=== PATIENT | female | born 1995 | race Caucasian/White ===

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

== ENCOUNTER 2017-07-21 11:14 | Emergency (ER) | payer OTHER ==
[2017-07-21 12:26] VITALS: BP 123/81
--- NOTE | 2017-07-21 13:07 | UC ---
Skin Complaint HPI - HPI Summary HPI Summary: Pt presents c/o "split" skin in corner of left side of mouth. corner of upper and lower lip - History of Current Complaint Chief Complaint: UCSkin Time Seen by Provider: 07/21/17 13:00 Stated Complaint: ORAL COMPLAINT Hx Obtained From: Patient Hx Last Menstrual Period: yesterday ?: No Onset/Duration: Gradual Onset, Lasting Days Skin Exposure Onset/Duration: Days Ago Timing: Constant Onset Severity: Mild Current Severity: Mild Location: Discrete - mouth Character: Pain Aggravating Factor(s): Other - eating Alleviating Factor(s): Nothing Associated Signs & Symptoms: Positive: Tenderness - Allergy/Home Medications Allergies/Adverse Reactions: Allergies Allergy/AdvReac Type Severity Reaction Status Date / Time No Known Allergies Allergy Verified 07/21/17 12:26 Home Medications: Home Medications Minocycline HCl 50 mg PO DAILY 07/21/17 [History Confirmed 07/21/17] Spironolactone TAB* [Aldactone TAB*] 25 mg PO DAILY 07/21/17 [History Confirmed 07/21/17] Review of Systems Constitutional: Negative Skin: Other - split skin of corner of mouth Eyes: Negative ENT: Negative Respiratory: Negative Cardiovascular: Negative Gastrointestinal: Negative Genitourinary: Negative Motor: Negative Neurovascular: Negative Musculoskeletal: Negative Neurological: Negative Psychological: Negative Is Patient Immunocompromised?: No All Other Systems Reviewed And Are Negative: Yes PMH/Surg Hx/FS Hx/Imm Hx Previously Healthy: Yes Other History Of: Negative For: HIV, Hepatitis B, Hepatitis C, Anticoagulant Therapy - Surgical History Surgical History: Yes Surgery Procedure, Year, and Place: Right [facility], [facility] - Family History Known Family History: Negative: Cardiac Disease, Hypertension - Social History Occupation: Student - [employer] Lives: With Family Alcohol Use: Occasionally Substance Use Type: None Smoking Status (MU): Never Smoked Tobacco Have You Smoked in the Last Year: No - Immunization History Most Recent Influenza Vaccination: Fall 2015 Physical Exam Triage Information Reviewed: Yes Appearance: Well-Appearing Vital Signs: Initial Vital Signs Temp 98 F 07/21/17 12:21 Pulse 65 07/21/17 12:21 Resp 16 07/21/17 12:21 BP 123/81 07/21/17 12:21 Vital Signs Reviewed: Yes Eye Exam: Normal ENT Exam: Normal Dental Exam: Normal Neck exam: Normal Respiratory Exam: Normal Musculoskeletal Exam: Normal Neurological Exam: Normal Psychological Exam: Normal Skin Exam: Other - angular chelitis, left side corner of mouth Course/Dx - Differential Diagnoses - Skin Complaint Differential Diagnoses: Other - angular chelitis - Diagnoses Provider Diagnoses: angular chelitis Discharge - Discharge Plan Condition: Stable Disposition: HOME Prescriptions: Nystatin/Triamcinolon OINT(NF) [Mycolog Oint*] 1 applic TOPICAL Q12H #1 tube Patient Education Materials: Nystatin/Triamcinolone (On the skin) Referrals: [facility] [Outside] - If Needed Non Staff,Doctor [Primary Care Provider] - If Needed Additional Instructions: Angular chelitis: Tender, red splits or cracks at the corner of your mouth (angular cheilitis), which can be caused by infection, a diet too low in vitamins, and over-closure of the mouth in someone who has been without teeth or dentures for some time.
== END 2017-07-21 13:21 | disposition home or self-care (01) ==
LOC: UCCORT 11:14
DX: L98.8 Other specified disorders of the skin and subcutaneous tissue (principal)
CPT/HCPCS: 99212; G0463